=== PATIENT | male | born 1945 | race Caucasian/White ===

== ENCOUNTER 2019-12-30 14:04 | Outpatient (REF) | payer MEDICARE, OTHER, SELFPAY ==
[2019-12-30 15:43] LABS: HCT 42.7 % (40.0-50.0); HGB 14.2 g/dL (13.5-17.5); MCH 29.3 pg (27.0-33.0); MCHC 33.3 % (32.0-36.0); MCV 88.2 fL (80-95); MPV 10.4 fL (8.0-11.0); Platelet Count 213 10^3/uL (130-400); RBC 4.84 10^6/uL (4.36-5.78); RDW 12.9 % (11.8-14.1); RDW-SD 41.4 fL; WBC 6.45 10^3/uL (4.4-10.8)
[2019-12-30 16:03] LABS: Anion Gap 4.1 mmol/L (3-11); BUN 19 mg/dL (7-18); CO2 29.9 mmol/L (21.0-32.0); CREATININE 0.86 mg/dL (0.70-1.30); Calcium 9.3 mg/dL (8.5-10.1); Calculated LDL 105 mg/dL (<100); Chloride 106 mmol/L (98-107); Cholesterol 180 mg/dL (<200); Glucose 98 mg/dL (74-106); HDL Cholesterol 57 mg/dL (40-60); Potassium 4.5 mmol/L (3.5-5.1); Sodium 140 mmol/L (136-145); Triglyceride 93 mg/dL (<150)
== END 2019-12-30 14:24 ==
LOC: NCHCN 14:04
PROVIDERS: PCP Nurse Practitioner Family; Visit Provider Nurse Practitioner Family
DX: E78.5 Hyperlipidemia, unspecified (principal)
CPT/HCPCS: 80048; 80061; 85027

== ENCOUNTER 2020-02-09 18:07 | Outpatient (REF) | payer MEDICARE, OTHER, SELFPAY ==
[2020-02-11 23:39] LABS: SARS-CoV-2 RNA Undetected (Undetected); SARS-CoV-2 Specimen Source Nasopharynx
== END 2020-02-09 18:27 ==
LOC: NCHCN 18:07
PROVIDERS: PCP Nurse Practitioner Family; Visit Provider Nurse Practitioner Family
DX: J02.9 Acute pharyngitis, unspecified (principal)
CPT/HCPCS: U0003

== ENCOUNTER 2021-11-11 16:42 | Emergency (ER) | payer MEDICARE, OTHER, SELFPAY ==
[2021-11-11 16:57] VITALS: BP 176/84; PULSE 78; RESP 16; TEMP 36.7; O2SAT 97
--- NOTE | 2021-11-11 17:00 | RT.EKG_ITS ---
APPROVED REPORT Exam: Resting ECG Reason for Exam: Dizziness Patient Location: E HR:74 bpm ECG Measurements Heart Rate 74 AXIS OK 192 P 49 QRSd 93 QRS 58 QT 382 T 29 QTc 424 Conclusion Sinus rhythm...normal P axis, V-rate 60- 99 sinus rhythm, normal axis, normal intervals, non ischemic
--- NOTE | 2021-11-11 17:10 | ED.GENADUL_ITS ---
Discharge Plan Disposition Patient Disposition: HOME Condition: Stable Discharge Details Clinical Impression: Dizziness, Sinus congestion Primary Care Provider: Lois Clifton ED Provider: Lottie Pederson Home Meds and New Rx's Prescriptions: New phenylephrine HCl 10 mg tablet 10 mg PO BID PRN (Reason: nasal congestion) 7 Days Qty: 14 0RF Rx Instructions: Take one every 12 hours as needed for congestion No Action lovastatin 20 mg Tablet 20 mg PO QHS fluticasone propionate [Flonase Allergy Relief] 50 mcg/actuation [place],Suspension 1 spray INTRANASAL BID Rx Instructions: administer into each nostril Discharge Instructions Instructions: Dizziness (ED) Additional Instructions: At this time there is no evidence for heart attack or electrolyte abnormality. Please consider following up with fine chemicals operator to completely rule out Brugada syndrome. Please return to the ER for any chest pain, shortness of breath, continued lightheadedness lasting longer than a few seconds or any concerns. Follow up with primary care provider in 3-5 days. Return to ED sooner if any worsening or concerns. Increase oral fluids. Please continue to take the Flonase and please take Sudafed which you can obtain [id number] however I have also written a prescription for you. 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 Patient is a very active gentleman, hx of seasonal allergies and High cholesterol. He was seen [employer] at [facility] and sent here for further eval. He denies fever, chills, no blurry vision or visual changes, denies weakness or numbness, he is alert and oriented x 4. Denies chest pain. He does endorse some intermittant nausea and decreased appetite. No other associated symptoms. Cardiac workup ordered. CBC shows no leukocytosis, CMP shows no electrolyte abnormalities. TSH within normal limits. Troponin less than 50. PT/INR within normal limits. EKG shows normal sinus rhythm. I did discuss the results with patient he verbalizes understanding. He is appearing frustrated he is requesting a decongestant. Phenylephrine prescription ordered. He is alert and oriented no signs of CVA. Chest x-ray within normal limits. I did discuss a follow-up with PCP and referral was given for cardiology. He verbalizes understanding. I did discuss strict return instructions and red flags. Patient remained hemodynamically stable alert and oriented throughout the remainder of his stay. This text was generated using [employer] dictation system, please disregard any oddities of phrase or misspellings. Lab Data Lab results reviewed: Yes I reviewed the patient's lab results. Labs: Laboratory Tests Range/Units 11/11/21 11/11/21 11/11/21 17:40 17:40 17:40 WBC (4.4-10.8) 10^3/uL 9.12 RBC (4.36-5.78) 10^6/uL 5.11 Hgb (13.5-17.5) g/dL 15.2 Hct (40.0-50.0) % 44.8 MCV (80-95) fL 88 MCH (27.0-33.0) pg 29.7 MCHC (32.0-36.0) % 33.9 RDW (11.8-14.1) % 12.9 Plt Count (130-400) 10^3/uL 196 MPV (8.0-11.0) fL 9.4 Immature Gran % 0.2 Neutrophils % 66.1 Lymphocytes % 25.0 Monocytes % 6.3 Eosinophils % 2.1 Basophils % 0.3 Nucleated RBC % (0.0-0.3) % 0.0 Absolute Neutrophils (1.2-6.7) 10^3/uL 6.03 Absolute Lymphocytes (1.2-3.4) 10^3/uL 2.28 Absolute Monocytes (0.1-0.8) 10^3/uL 0.57 Absolute Eosinophils (0.0-0.7) 10^3/uL 0.19 Absolute Basophils (0.0-0.2) 10^3/uL 0.03 PT (9.3-11.0) sec 10.3 INR (0.9-1.1) 1.0 APTT (21.0-27.5) sec 22.9 Sodium (136-145) mmol/L 136 Potassium (3.5-5.1) mmol/L 4.0 Chloride (98-107) mmol/L 101 Carbon Dioxide (21.0-32.0) mmol/L 28.3 Anion Gap (3-11) mmol/L 6.7 BUN (7-18) mg/dL 20 H Creatinine (0.70-1.30) mg/dL 1.0 Estimated GFR/1.73 m2 (mL/min/1.73m2) >= 60.00 Glucose (74-106) mg/dL 122 H Calcium (8.5-10.1) mg/dL 9.8 Magnesium (1.8-2.4) mg/dL 2.1 Total Bilirubin (0.2-1.0) mg/dL 0.7 AST (15-37) U/L 21 ALT (16-63) U/L 23 Alkaline Phosphatase (46-116) U/L 51 Troponin I (<or=60) ng/L < 50 Total Protein (6.4-8.2) g/dL 7.7 Albumin (3.4-5.0) g/dL 4.1 TSH (0.36-3.74) uIU/mL 3.01 Range/Units 11/11/21 20:03 WBC (4.4-10.8) 10^3/uL RBC (4.36-5.78) 10^6/uL Hgb (13.5-17.5) g/dL Hct (40.0-50.0) % MCV (80-95) fL MCH (27.0-33.0) pg MCHC (32.0-36.0) % RDW (11.8-14.1) % Plt Count (130-400) 10^3/uL MPV (8.0-11.0) fL Immature Gran % Neutrophils % Lymphocytes % Monocytes % Eosinophils % Basophils % Nucleated RBC % (0.0-0.3) % Absolute Neutrophils (1.2-6.7) 10^3/uL Absolute Lymphocytes (1.2-3.4) 10^3/uL Absolute Monocytes (0.1-0.8) 10^3/uL Absolute Eosinophils (0.0-0.7) 10^3/uL Absolute Basophils (0.0-0.2) 10^3/uL PT (9.3-11.0) sec INR (0.9-1.1) APTT (21.0-27.5) sec Sodium (136-145) mmol/L Potassium (3.5-5.1) mmol/L Chloride (98-107) mmol/L Carbon Dioxide (21.0-32.0) mmol/L Anion Gap (3-11) mmol/L BUN (7-18) mg/dL Creatinine (0.70-1.30) mg/dL Estimated GFR/1.73 m2 (mL/min/1.73m2) Glucose (74-106) mg/dL Calcium (8.5-10.1) mg/dL Magnesium (1.8-2.4) mg/dL Total Bilirubin (0.2-1.0) mg/dL AST (15-37) U/L ALT (16-63) U/L Alkaline Phosphatase (46-116) U/L Troponin I (<or=60) ng/L Cancelled Total Protein (6.4-8.2) g/dL Albumin (3.4-5.0) g/dL TSH (0.36-3.74) uIU/mL HPI General Mode of arrival: ambulatory . Date/Time Provider Initiated Documentation: 11/11/21 17:03 . Limitations to Documentation: no limitations . Information obtained by: patient, RN/MD (Sent here from [facility] for EKG changes and near syncope), RN notes reviewed and old records reviewed . 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 Patient is a very active gentleman, hx of seasonal allergies and High cholesterol. He was seen [employer] at [facility] and sent here for further eval. He denies fever, chills, no blurry vision or visual changes, denies weakness or numbness, he is alert and oriented x 4. Denies chest pain. He does endorse some intermittant nausea and decreased appetite. No other associated symptoms. Related Data Home Medications Medication Instructions Recorded Confirmed fluticasone propionate 50 1 spray intranasal BID 11/11/21 11/11/21 mcg/actuation nasal spray,suspension (Flonase Allergy Relief) lovastatin 20 mg tablet 20 mg PO QHS 11/11/21 11/11/21 phenylephrine HCl 10 mg tablet 10 mg PO BID PRN nasal congestion 11/11/21 7 days #14 tabs Previous Rx's Medication Instructions Recorded phenylephrine HCl 10 mg tablet 10 mg PO BID PRN nasal congestion 11/11/21 7 days #14 tabs Allergies Allergy/AdvReac Type Severity Reaction Status Date / Time ragweed pollen Allergy Unverified 11/11/21 17:03 General Stated Complaint: Dizzy/Sync ASHLEY: 3 Review of Systems All systems reviewed & are unremarkable except as noted in HPI and below ENT Ears, Nose, Mouth, and Throat: Reports sinus pressure Cardiovascular Cardiovascular: Denies chest pain, Denies chest pain at rest, Denies pedal edema, Denies leg edema, Reports lightheadedness, Denies radiating jaw, neck or arm pain and Denies dyspnea Respiratory Respiratory: Denies cough, Denies dyspnea and Denies wheezing Allergic/Immunologic Allergic/Immunologic: Denies wheezing PFSH All Active Problems (Updated 11/11/21 @ 18:56 by Lottie Pederson NP) Dizziness (Acute) Sinus congestion (Acute) Social History Smoking/Tobacco Use Status: Never Smoking risk assessment performed?: Yes Alcohol Intake: never Drug use: Occasionally Substance use type: marijuana Do you feel safe at home: Yes Do you feel safe in your relationship?: Yes Exam Narrative Exam Narrative: Constitutional: Alert and oriented x3. Appears stated age. Normal body habitus. Head: Normocephalic, no trauma. Eyes: Pupils PERRL, Red reflex noted, EOM's intact. Eyelids symmetrical without lesions, discharge, or swelling. ENT: Bilateral TM's WNL, External ear normal to inspection, no mastoid TTP, swelling, or erythema, Nasal turbinates WNL, no nasal discharge. Normal dentition, Posterior pharynx WNL, no exudate. Chest: RRR, Normal S1, S2, distal pulses intact. Resp: Lungs clear to auscultation bilaterally, no wheezes, rales, or rhonchi. Abdomen: Soft, non-distended, Normoactive bowel sounds all 4 quads. Musculoskeletal: Normal gait, 5/5 strength to all four extremities. Skin: No suspicious rashes or lesions. Capillary refill less than 2 sec. Neurologic: Cranial nerves II-XII intact. Alert and oriented x 3. Motor: No deficits noted. Sensory: Intact bilaterally all 4 extremities. Reflexes: DTR's i ntact bilaterally.. Hematologic/Lymphatic: No ecchymosis, no lymphadenopathy. Course Vital Signs Vital signs: Vital Signs Temperature 36.7 C 11/11/21 16:57 Pulse 78 11/11/21 16:57 Respiratory Rate 16 11/11/21 16:57 Blood Pressure 176/84 H 11/11/21 16:57 Pulse Oximetry 97 11/11/21 16:57 Temperature 36.7 C 11/11/21 16:57 Temperature Source Temporal Artery Scan 11/11/21 16:57 Pulse 78 11/11/21 16:57 Respiratory Rate 16 11/11/21 16:57 Respiratory Effort 11/11/21 17:02 Blood Pressure 176/84 H 11/11/21 16:57 Blood Pressure Position Supine 11/11/21 16:57 Pulse Oximetry 97 11/11/21 16:57 Oxygen Delivery Method Room Air 11/11/21 16:57 Oxygen Flow Rate 0 11/11/21 16:57 Pain Level 0 11/11/21 16:57
--- NOTE | 2021-11-11 17:15 | DI.RAD_ITS ---
Exam(s) XR CHEST 2V PA LATERAL EXAM: XR CHEST 2V PA LATERAL CLINICAL HISTORY: Dizziness. TECHNIQUE: 2D digital imaging was performed. COMPARISON: None FINDINGS: 2 views: Heart size is normal. The mediastinum is not widened. Lungs are clear. No infiltrates nor pleural effusions. There is a healed fracture of the posterior lateral aspect of the right 8th rib. No acute fractures. IMPRESSION: No acute pulmonary findings. DATA REPOSITORY: RADIATION DOSE DELIVERED:
[2021-11-11 18:00] LABS: Abs Immature Grans 0.02 10^3/uL (0.0-0.06); Absolute Basophil Count 0.03 10^3/uL (0.0-0.2); Absolute Eosinophil Count 0.19 10^3/uL (0.0-0.7); Absolute Lymphocyte Count 2.28 10^3/uL (1.2-3.4); Absolute Monocyte Count 0.57 10^3/uL (0.1-0.8); Absolute Neutrophil Count 6.03 10^3/uL (1.2-6.7); Basophils % 0.3; Eosinophils % 2.1; HCT 44.8 % (40.0-50.0); HGB 15.2 g/dL (13.5-17.5); Immature Grans % 0.2; MCH 29.7 pg (27.0-33.0); MCHC 33.9 % (32.0-36.0); MCV 88 fL (80-95); MPV 9.4 fL (8.0-11.0); Monocytes % 6.3; Neutrophils % 66.1; Platelet Count 196 10^3/uL (130-400); RBC 5.11 10^6/uL (4.36-5.78); RDW 12.9 % (11.8-14.1); RDW-SD 41.5 fL; WBC 9.12 10^3/uL (4.4-10.8)
[2021-11-11 18:03] VITALS: RESP 18
[2021-11-11 18:10] VITALS: PULSE 66; RESP 14; O2SAT 98
[2021-11-11 18:13] LABS: PTT Activated 22.9 sec (21.0-27.5); Prothrombin Time 10.3 sec (9.3-11.0)
[2021-11-11 18:20] VITALS: PULSE 64; RESP 19; O2SAT 97
--- NOTE | 2021-11-11 18:24 | DI.VRAD_ITS ---
PROCEDURE INFORMATION: Exam: XR Chest Exam date and time: 11/11/2021 6:03 PM Age: 76 years old Clinical indication: Other: Dizziness TECHNIQUE: Imaging protocol: Radiologic exam of the chest. Views: 2 views. COMPARISON: No relevant prior studies available. FINDINGS: Lungs: Unremarkable. No consolidation. Pleural spaces: Unremarkable. No pleural effusion. No pneumothorax. Heart/Mediastinum: Unremarkable. No cardiomegaly. Bones/joints: There is an old healed left 8th posterior rib fracture. There are degenerative changes of the thoracic spine. IMPRESSION: Osseous findings as above. Dictated and Authenticated by: Lobo Zapata MD. Ordering:PRATIK Tafoya MD
[2021-11-11 18:25] LABS: ALT 23 U/L (16-63); AST 21 U/L (15-37); Albumin 4.1 g/dL (3.4-5.0); Alkaline Phosphatase 51 U/L (46-116); Anion Gap 6.7 mmol/L (3-11); BUN 20 mg/dL (7-18); Bilirubin, Total 0.7 mg/dL (0.2-1.0); CO2 28.3 mmol/L (21.0-32.0); Calcium 9.8 mg/dL (8.5-10.1); Chloride 101 mmol/L (98-107); Glucose 122 mg/dL (74-106); Magnesium 2.1 mg/dL (1.8-2.4); Sodium 136 mmol/L (136-145); TSH 3.01 uIU/mL (0.36-3.74); Total Protein 7.7 g/dL (6.4-8.2); Troponin I < 50 ng/L (<or=60)
== END 2021-11-11 19:11 | disposition home or self-care (01) ==
PROVIDERS: Emergency Provider Registered Nurse Emergency; PCP Nurse Practitioner Family
DX: R42 Dizziness and giddiness (principal); R09.81 Nasal congestion; E78.00 Pure hypercholesterolemia, unspecified
CPT/HCPCS: 36415; 80053; 93005; 99284; 71046; 83735; 84443; 84484; 85025; 85610; 85730; 93010; 99283

== ENCOUNTER 2023-01-28 14:45 | Outpatient (REF) | payer MEDICARE, OTHER, SELFPAY ==
--- NOTE | 2023-01-28 14:15 | SKI_PTH ---
PATIENT: Hiren Jackson III LOC: [facility] U#:[id number] AGE/SX: 77/M ROOM: RE01/28/[address]: Elias Sheikh : 1945 BED: DIS: 01/28/2023 SPEC #: [id number] RECD: 01/28/23 17:14 STATUS: RENUKA REQ #: [id number] ISHA: 01/28/23 14:[address]: Elias Sheikh DEPT: Surgical Specimen RECD BY: Anabell Badillo ENTERED: 01/28/23 17:15 SP TYPE: ANGEL MCKEON DR: Lois Clifton Tissues: 1 - SKIN BIOPSY(SHAVE/PUNCH) Procedures: SKIN LEVEL 4 Comments: [id number]
== END 2023-01-28 14:46 | disposition home or self-care (01) ==
LOC: LBN 14:45
PROVIDERS: PCP Nurse Practitioner Family; Visit Provider Physician Assistant
DX: L85.2 Keratosis punctata (palmaris et plantaris) (principal)
CPT/HCPCS: 88305

== ENCOUNTER 2024-01-05 15:02 | Outpatient (REF) | payer MEDICARE, OTHER, SELFPAY ==
[2024-01-05 19:15] LABS: HCT 43.7 % (40.0-50.0); HGB 14.3 g/dL (13.5-17.5); MCH 29.4 pg (27.0-33.0); MCHC 32.7 % (32.0-36.0); MCV 90 fL (80-95); MPV 9.8 fL (8.0-11.0); Platelet Count 229 10^3/uL (130-400); RBC 4.87 10^6/uL (4.36-5.78); RDW 13.1 % (11.8-14.1); RDW-SD 42.8 fL; WBC 6.61 10^3/uL (4.4-10.8)
[2024-01-05 19:32] LABS: ALT 26 U/L (16-63); AST 22 U/L (15-37); Albumin 4.1 g/dL (3.4-5.0); Alkaline Phosphatase 72 U/L (46-116); Anion Gap 7.8 mmol/L (3-11); BUN 19 mg/dL (7-18); CO2 30.2 mmol/L (21.0-32.0); Calcium 9.5 mg/dL (8.5-10.1); Calculated LDL 90 mg/dL (<100); Chloride 101 mmol/L (98-107); Cholesterol 171 mg/dL (<200); Estimated GFR 77.52 (mL/min/1.73m2); Glucose 72 mg/dL (74-106); HDL Cholesterol 67 mg/dL (40-60); Sodium 139 mmol/L (136-145); Total Protein 7.3 g/dL (6.4-8.2); Triglyceride 73 mg/dL (<150)
== END 2024-01-05 15:03 | disposition home or self-care (01) ==
LOC: NCHCN 15:02
PROVIDERS: Visit Provider Physician Assistant
DX: E78.5 Hyperlipidemia, unspecified (principal)
CPT/HCPCS: 80053; 80061; 85027

== ENCOUNTER 2024-08-12 13:22 | Outpatient (REF) | payer MEDICARE, OTHER, SELFPAY ==
[2024-08-12 15:16] LABS: HCT 45.7 % (40.0-50.0); HGB 15.1 g/dL (13.5-17.5); MCH 29.2 pg (27.0-33.0); MCV 88 fL (80-95); MPV 9.6 fL (8.0-11.0); Platelet Count 211 10^3/uL (130-400); RBC 5.17 10^6/uL (4.36-5.78); RDW 12.9 % (11.8-14.1); RDW-SD 41.9 fL; WBC 8.63 10^3/uL (4.4-10.8)
[2024-08-12 15:30] LABS: ALT 23 U/L (16-63); AST 23 U/L (15-37); Albumin 4.1 g/dL (3.4-5.0); Alkaline Phosphatase 55 U/L (46-116); Anion Gap 6.1 mmol/L (3-11); BUN 14 mg/dL (7-18); CO2 29.9 mmol/L (21.0-32.0); CREATININE 0.9 mg/dL (0.70-1.30); Calcium 9.9 mg/dL (8.5-10.1); Chloride 102 mmol/L (98-107); Estimated GFR 87.42 (mL/min/1.73m2); Glucose 97 mg/dL (74-106); Potassium 5.1 mmol/L (3.5-5.1); Sodium 138 mmol/L (136-145); Total Protein 7.3 g/dL (6.4-8.2)
== END 2024-08-12 13:23 | disposition home or self-care (01) ==
LOC: NCHCN 13:22
PROVIDERS: Visit Provider Physician Assistant
DX: L20.9 Atopic dermatitis, unspecified (principal)
CPT/HCPCS: 80053; 85027

== ENCOUNTER 2025-01-23 04:14 | Outpatient (CLI) | payer MEDICARE, OTHER, SELFPAY ==
[2025-01-23 14:17] LABS: HCT 43.8 % (40.0-50.0); HGB 14.9 g/dL (13.5-17.5); MCH 29.7 pg (27.0-33.0); MCHC 34.0 % (32.0-36.0); MCV 87 fL (80-95); MPV 9.2 fL (8.0-11.0); Platelet Count 228 10^3/uL (130-400); RBC 5.02 10^6/uL (4.36-5.78); RDW 13.2 % (11.8-14.1); RDW-SD 42.5 fL; WBC 7.51 10^3/uL (4.4-10.8)
[2025-01-23 15:49] LABS: ALT 53 U/L (16-63); AST 45 U/L (15-37)
== END 2025-01-23 04:15 | disposition home or self-care (01) ==
LOC: LBO 04:16
PROVIDERS: Visit Provider Dermatology
DX: Z79.899 Other long term (current) drug therapy (principal)
CPT/HCPCS: 36415; 85027; 84450; 84460